=== PATIENT | female | born 1940 | race Caucasian/White ===

== ENCOUNTER 2017-07-16 15:33 | Inpatient (IN) ==
[2017-07-16 16:36] LABS: Hematocrit 41.2 % (35.3-44.9); Hemoglobin 13.8 g/dL (11.5-15.4); Mean Corpuscular HGB Conc 33.5 g/dL (31.6-35.5); Mean Corpuscular Hemoglobin 29.5 pg (28.0-33.3); Mean Platelet Volume 10.1 fL (9.4-12.4); Platelet Count 114 K/mcL (140-400); Red Blood Count 4.68 M/mcL (3.82-4.97); Red Cell Distribution Width 13.2 % (11.5-14.5)
[2017-07-16] MEDS ORDERED: 0.9 % Sodium Chloride 1,000 ML IVC ONE (16:40)
[2017-07-16] MEDS ORDERED: Ipratropium/Albuterol Neb 3 ML IH ONE (16:40)
[2017-07-16] MEDS ORDERED: methylPREDNISolone 125 MG/2 ML VIAL IVP ONE (16:40)
--- NOTE | 2017-07-16 16:51 | Emergency Department Note ---
Disposition Clinical Impression: Hypoxia, COPD exacerbation COPD (chronic obstructive pulmonary disease) Qualifiers: COPD type: unspecified COPD Qualified Code(s): J44.9 - Chronic obstructive pulmonary disease, unspecified Chest pain Qualifiers: Chest pain type: unspecified Qualified Code(s): R07.9 - Chest pain, unspecified Disposition: Admitted As Inpatient Condition: Fair Referrals: Irina Miller CNP [Primary Care Provider] - Forms: ED Satisfaction Letter Time of Disposition: 17:53 SOB HPI - General Chief Complaint: ED Shortness of Breath/Dyspnea Stated Complaint: Possible PE,Dr Irina Miller. CP/SOB Time Seen by Provider: 07/16/17 16:16 Source: patient Mode of arrival: wheelchair Limitations: no limitations Nursing Notes Reviewed: Yes Vital Signs Reviewed: Yes - History of Present Illness 77-year-old female with history of COPD presents for evaluation of dyspnea. Patient did have a recent hospitalization at [facility] where she had a volvulus. Patient states that her current symptoms occurring over the past 3 days. Patient's had shortness of breath as well as a productive green cough during this time. Patient noted increasing chest pain on the left side today. Patient states it hurts when she takes a deep breath. Notes that 2 of her today. Patient denies any fevers. Denies any nausea vomiting or diaphoresis. Patient states that she does not use home oxygen was sent in by her primary care doctor when she was hypoxic on room air 87%. - Related Data Home Medications Medication Instructions Recorded Confirmed Enalapril Maleate [Vasotec] 20 mg PO BID 07/16/17 07/16/17 Allergies Allergy/AdvReac Type Severity Reaction Status Date / Time sulfamethoxazole AdvReac Vomiting Verified 07/16/17 15:36 [From Bactrim] trimethoprim [From Bactrim] AdvReac Vomiting Verified 07/16/17 15:36 All systems ED: reviewed and negative except as stated. Constitutional: Denies: fever Cardiovascular: Denies: chest pain Respiratory: Denies: cough, dyspnea Gastrointestinal: Denies: abdominal pain, nausea, vomiting Past Medical History - Past Medical History Source: patient Medical history: Reports: diabetes, hypertension Psychiatric history: Reports: no psych history - Social History Smoking Status: Former smoker Smokeless Tobacco Status: No Alcohol use: Reports: none Drug use: Reports: none Physical Exam - General Limitations: no limitations General appearance: alert - Head Head exam: atraumatic, normocephalic, normal inspection - Eye Eye exam: Present: normal appearance, PERRL, EOMI - ENT ENT exam: normal exam - Neck Neck exam: Present: normal inspection - Chest Chest inspection: Present: normal inspection, symmetric chest wall rise - Respiratory Respiratory exam: Present: prolonged expiratory phase, other (Decreased with poor respiratory effort throughout. Faint wheeze) - Cardiovascular Cardiovascular exam: Present: regular rate, normal rhythm. Absent: systolic murmur - Abdominal Exam Abdominal exam: Present: soft, Non-Tender - Extremities Exam Extremities exam: Present: normal inspection. Absent: pedal edema - Expanded Lower Extremity Exam Neurovascular/Tendon exam: Present: normal capillary refill. Absent: pulse deficit, motor deficit, sensory deficit - Back Exam Back exam: Present: normal inspection - Neurological Exam Neurological exam: Present: alert, oriented X3, CN II-XII intact - Skin Skin exam: Present: warm, dry, intact, normal color Course Course Narrative: Patient will get breathing treatments, labs, concerns for PE. - Reevaluation(s) Reevaluation #1: Patient seen and examined. Patient states that her chest wall hurts. Patient will be given pain medication. Patient's lungs reveal slightly better aeration. Continues to be diminished. Awaiting CT angios of the chest. Time: 17:30 Vital Signs Temperature 98.4 F 07/16/17 15:36 Pulse Rate 104 07/16/17 15:36 Respiratory Rate 24 07/16/17 15:36 Blood Pressure 141/87 07/16/17 15:36 O2 Sat by Pulse Oximetry 94 07/16/17 15:36 Temperature 98.4 F 07/16/17 15:36 Pulse Rate 99 07/16/17 16:31 Respiratory Rate 18 07/16/17 16:52 Blood Pressure 147/87 07/16/17 16:31 O2 Sat by Pulse Oximetry 96 07/16/17 16:52 Oxygen Delivery Oxygen Delivery Nasal Cannula Shortness of Breath/Dyspnea - [facility] Narrative Medical decision making narrative: Patient presents with concerns of chest pain and shortness of breath. Patient has a history of COPD not requiring oxygen at home. She was seen in after being found hypoxic with dyspnea as well as a pleuritic chest pain on the left side. Given the timing of the patient's symptoms and negative troponin makes ACS less likely. Patient had an interpretably nonischemic EKG. Patient had a CTA of the chest which did not show any central pulmonary embolism. Patient likely had bilateral lower edema versus atelectasis versus pneumonia. However given the patient's symptoms as well as productive cough the patient will be started on antibiotics. Patient was treated with aerosols as well as steroids. Patient's symptoms are less likely ACS. Patient will be admitted to the hospital service for further evaluation monitoring with supportive care. - Lab Data Lab results reviewed: Yes I reviewed the patient's lab results. Result diagrams: 07/16/17 16:11 07/16/17 16:11 Lab Results 07/16/17 07/16/17 07/16/17 Range/Units 16:11 16:11 16:11 WBC 9.2 (4.3-11.1) K/mcL RBC 4.68 (3.82-4.97) M/mcL Hgb 13.8 (11.5-15.4) g/dL Hct 41.2 (35.3-44.9) % MCV 88.0 (83.0-100.0) fL MCH 29.5 (28.0-33.3) pg MCHC 33.5 (31.6-35.5) g/dL RDW 13.2 (11.5-14.5) % Plt Count 114 L (140-400) K/mcL MPV 10.1 (9.4-12.4) fL Immature Gran % Test Not Performed Seg Neutrophils % 72.0 % Band Neutrophils % 8.0 H (0-4) % Lymphocytes % 10.0 % Monocytes % 6.0 % Eosinophils % Test Not Performed Basophils % Test Not Performed Metamyelocytes % 4.0 H (0) % Neutrophils # 7.4 (1.6-8.9) K/mcL Lymphocytes # 0.9 (0.6-4.6) K/mcL Monocytes # 0.6 (0.0-1.3) K/mcL Eosinophils # Test Not Performed Basophils # Test Not Performed Reactive Lymphocytes Present A (Not Present) Platelet Estimate Decreased L (Normal) D-Dimer 895 H (0-500) ng/mLFEU Sodium 137 (136-145) mEq/L Potassium 3.6 (3.5-5.1) mEq/L Chloride 103 (98-107) mEq/L Carbon Dioxide 27 (23-29) mEq/L BUN 10 (8-23) mg/dL Creatinine 0.59 L (0.60-1.20) mg/dL Est GFR ( Amer) > 60 (> 60) Est GFR (Non-Af Amer) > 60 (> 60) BUN/Creatinine Ratio 17 (6-26) Glucose 146 H (70-105) mg/dL Calculated Osmolality 286 (280-300) Calcium 9.2 (8.6-10.3) mg/dL Total Bilirubin 0.8 (0.3-1.0) mg/dL AST 16 (13-39) Units/L ALT 19 (7-52) Units/L Alkaline Phosphatase 52 (34-104) Units/L Troponin I < 0.03 (< 0.04) ng/mL B-Natriuretic Peptide (Less than 100) pg/mL Serum Total Protein 7.3 (6.4-8.9) g/dL Albumin 4.1 (3.5-5.7) g/dL Globulin 3.2 (2.4-3.5) g/dL Albumin/Globulin Ratio 1.3 (1.1-2.2) 07/16/17 Range/Units 16:11 WBC (4.3-11.1) K/mcL RBC (3.82-4.97) M/mcL Hgb (11.5-15.4) g/dL Hct (35.3-44.9) % MCV (83.0-100.0) fL MCH (28.0-33.3) pg MCHC (31.6-35.5) g/dL RDW (11.5-14.5) % Plt Count (140-400) K/mcL MPV (9.4-12.4) fL Immature Gran % Seg Neutrophils % % Band Neutrophils % (0-4) % Lymphocytes % % Monocytes % % Eosinophils % Basophils % Metamyelocytes % (0) % Neutrophils # (1.6-8.9) K/mcL Lymphocytes # (0.6-4.6) K/mcL Monocytes # (0.0-1.3) K/mcL Eosinophils # Basophils # Reactive Lymphocytes (Not Present) Platelet Estimate (Normal) D-Dimer (0-500) ng/mLFEU Sodium (136-145) mEq/L Potassium (3.5-5.1) mEq/L Chloride (98-107) mEq/L Carbon Dioxide (23-29) mEq/L BUN (8-23) mg/dL Creatinine (0.60-1.20) mg/dL Est GFR ( Amer) (> 60) Est GFR (Non-Af Amer) (> 60) BUN/Creatinine Ratio (6-26) Glucose (70-105) mg/dL Calculated Osmolality (280-300) Calcium (8.6-10.3) mg/dL Total Bilirubin (0.3-1.0) mg/dL AST (13-39) Units/L ALT (7-52) Units/L Alkaline Phosphatase (34-104) Units/L Troponin I (< 0.04) ng/mL B-Natriuretic Peptide 29 (Less than 100) pg/mL Serum Total Protein (6.4-8.9) g/dL Albumin (3.5-5.7) g/dL Globulin (2.4-3.5) g/dL Albumin/Globulin Ratio (1.1-2.2) - Radiology Data Radiology results reviewed: Yes I reviewed the patient's radiology results. Chest X-Ray 07/16/17 15:41 IMPRESSION: Patchy bilateral lower lung airspace disease, greater on the left, likely atelectasis. Pneumonia and edema remain less likely considerations. D/ / Moshe Andrea MD / Moshe Andrea MD Interpreting Provider: Moshe Andrea MD Chest X-Ray 07/16/17 15:41 IMPRESSION: Patchy bilateral lower lung airspace disease, greater on the left, likely atelectasis. Pneumonia and edema remain less likely considerations. D/ / Moshe Andrea MD / Moshe Andrea MD Interpreting Provider: Moshe Andrea MD Chest CTA 07/16/17 17:00 IMPRESSION: 1. Limited evaluation of the segmental and subsegmental pulmonary arterial branches. No central pulmonary embolism is detected. 2. Patchy collapse and consolidation within the lower lobes bilaterally. Although some of this likely represents atelectasis, a component of edema or pneumonia would be considered as well. 3. Borderline enlarged lymph nodes within the mediastinum, probably reactive. 4. Severe emphysema. D/ / Moshe Andrea MD / Moshe Andrea MD Interpreting Provider: Moshe Andrea MD - EKG Data EKG attestation: Yes I reviewed and interpreted this EKG. EKG shows normal: Reports: sinus rhythm [place]/QRS: Reports: normal, RBBB T wave inversions noted in: Reports: II, III, aVF, v1, v2, v3, v4, v5, v6 Interpretation: Reports: no acute changes, nonspecific ST-T wave changes S.Kim - Evangelina Situation: Demographics Background: Presenting Complaint Assessment: Vital Signs, Course and respsone to treatment Recommendation: Barrier(s) to disposition, Recommendation based on pending studies, treatments, or consults S.B.AThea Report Given to: Dr. Khai Hutchinson Repor Time: 17:58
[2017-07-16 16:57] LABS: Alanine Aminotransferase 19 Units/L (7-52); Albumin 4.1 g/dL (3.5-5.7); Albumin/Globulin Ratio 1.3 (1.1-2.2); Alkaline Phosphatase 52 Units/L (34-104); Aspartate Amino Transferase 16 Units/L (13-39); BUN/Creatinine Ratio 17 (6-26); Bilirubin,Total 0.8 mg/dL (0.3-1.0); Blood Urea Nitrogen 10 mg/dL (8-23); Calcium 9.2 mg/dL (8.6-10.3); Carbon Dioxide 27 mEq/L (23-29); Chloride 103 mEq/L (98-107); Globulin 3.2 g/dL (2.4-3.5); Glucose 146 mg/dL (70-105); Osmolality,Calculated 286 (280-300); Potassium 3.6 mEq/L (3.5-5.1); Sodium 137 mEq/L (136-145); Total Protein 7.3 g/dL (6.4-8.9); eGFR For African Americans > 60 (> 60); eGFR For Non-African Americans > 60 (> 60)
--- NOTE | 2017-07-16 16:59 | Emergency Department Note ---
Disposition Clinical Impression: Hypoxia, COPD exacerbation COPD (chronic obstructive pulmonary disease) Qualifiers: COPD type: unspecified COPD Qualified Code(s): J44.9 - Chronic obstructive pulmonary disease, unspecified Chest pain Qualifiers: Chest pain type: unspecified Qualified Code(s): R07.9 - Chest pain, unspecified Disposition: Admitted As Inpatient Condition: Fair Referrals: Irina Miller CNP [Primary Care Provider] - Forms: ED Satisfaction Letter General Adult HPI - General Chief complaint: ED Shortness of Breath/Dyspnea Stated complaint: Possible PE,Dr Irina Miller. CP/SOB Time Seen by Provider: 07/16/17 16:16 Source: patient Mode of arrival: wheelchair Limitations: no limitations - History of Present Illness Pain Scale: 8 - Related Data Home Medications Medication Instructions Recorded Confirmed Enalapril Maleate [Vasotec] 20 mg PO BID 07/16/17 07/16/17 Allergies Allergy/AdvReac Type Severity Reaction Status Date / Time sulfamethoxazole AdvReac Vomiting Verified 07/16/17 15:36 [From Bactrim] trimethoprim [From Bactrim] AdvReac Vomiting Verified 07/16/17 15:36 Constitutional: Denies: fever Cardiovascular: Denies: chest pain Respiratory: Denies: cough, dyspnea Gastrointestinal: Denies: abdominal pain, nausea, vomiting Past Medical History - Past Medical History Medical history: Reports: diabetes, hypertension Psychiatric history: Reports: no psych history - Social History Smoking Status: Former smoker Smokeless Tobacco Status: No Alcohol use: Reports: none Drug use: Reports: none Physical Exam - General Limitations: no limitations General appearance: alert Course Vital Signs Temperature 98.4 F 07/16/17 15:36 Pulse Rate 104 07/16/17 15:36 Respiratory Rate 24 07/16/17 15:36 Blood Pressure 141/87 07/16/17 15:36 O2 Sat by Pulse Oximetry 94 07/16/17 15:36 Temperature 98.4 F 07/16/17 15:36 Pulse Rate 99 07/16/17 16:31 Respiratory Rate 18 07/16/17 16:52 Blood Pressure 147/87 07/16/17 16:31 O2 Sat by Pulse Oximetry 96 07/16/17 16:52 Oxygen Delivery Oxygen Delivery Nasal Cannula Medical Decision Making - Lab Data Result diagrams: 07/16/17 16:11 07/16/17 16:11 Lab Results 07/16/17 07/16/17 07/16/17 Range/Units 16:11 16:11 16:11 WBC 9.2 (4.3-11.1) K/mcL RBC 4.68 (3.82-4.97) M/mcL Hgb 13.8 (11.5-15.4) g/dL Hct 41.2 (35.3-44.9) % MCV 88.0 (83.0-100.0) fL MCH 29.5 (28.0-33.3) pg MCHC 33.5 (31.6-35.5) g/dL RDW 13.2 (11.5-14.5) % Plt Count 114 L (140-400) K/mcL MPV 10.1 (9.4-12.4) fL Immature Gran % Test Not Performed Seg Neutrophils % 72.0 % Band Neutrophils % 8.0 H (0-4) % Lymphocytes % 10.0 % Monocytes % 6.0 % Eosinophils % Test Not Performed Basophils % Test Not Performed Metamyelocytes % 4.0 H (0) % Neutrophils # 7.4 (1.6-8.9) K/mcL Lymphocytes # 0.9 (0.6-4.6) K/mcL Monocytes # 0.6 (0.0-1.3) K/mcL Eosinophils # Test Not Performed Basophils # Test Not Performed Reactive Lymphocytes Present A (Not Present) Platelet Estimate Decreased L (Normal) D-Dimer 895 H (0-500) ng/mLFEU Sodium 137 (136-145) mEq/L Potassium 3.6 (3.5-5.1) mEq/L Chloride 103 (98-107) mEq/L Carbon Dioxide 27 (23-29) mEq/L BUN 10 (8-23) mg/dL Creatinine 0.59 L (0.60-1.20) mg/dL Est GFR ( Amer) > 60 (> 60) Est GFR (Non-Af Amer) > 60 (> 60) BUN/Creatinine Ratio 17 (6-26) Glucose 146 H (70-105) mg/dL Calculated Osmolality 286 (280-300) Calcium 9.2 (8.6-10.3) mg/dL Total Bilirubin 0.8 (0.3-1.0) mg/dL AST 16 (13-39) Units/L ALT 19 (7-52) Units/L Alkaline Phosphatase 52 (34-104) Units/L Troponin I < 0.03 (< 0.04) ng/mL B-Natriuretic Peptide (Less than 100) pg/mL Serum Total Protein 7.3 (6.4-8.9) g/dL Albumin 4.1 (3.5-5.7) g/dL Globulin 3.2 (2.4-3.5) g/dL Albumin/Globulin Ratio 1.3 (1.1-2.2) 07/16/17 Range/Units 16:11 WBC (4.3-11.1) K/mcL RBC (3.82-4.97) M/mcL Hgb (11.5-15.4) g/dL Hct (35.3-44.9) % MCV (83.0-100.0) fL MCH (28.0-33.3) pg MCHC (31.6-35.5) g/dL RDW (11.5-14.5) % Plt Count (140-400) K/mcL MPV (9.4-12.4) fL Immature Gran % Seg Neutrophils % % Band Neutrophils % (0-4) % Lymphocytes % % Monocytes % % Eosinophils % Basophils % Metamyelocytes % (0) % Neutrophils # (1.6-8.9) K/mcL Lymphocytes # (0.6-4.6) K/mcL Monocytes # (0.0-1.3) K/mcL Eosinophils # Basophils # Reactive Lymphocytes (Not Present) Platelet Estimate (Normal) D-Dimer (0-500) ng/mLFEU Sodium (136-145) mEq/L Potassium (3.5-5.1) mEq/L Chloride (98-107) mEq/L Carbon Dioxide (23-29) mEq/L BUN (8-23) mg/dL Creatinine (0.60-1.20) mg/dL Est GFR ( Amer) (> 60) Est GFR (Non-Af Amer) (> 60) BUN/Creatinine Ratio (6-26) Glucose (70-105) mg/dL Calculated Osmolality (280-300) Calcium (8.6-10.3) mg/dL Total Bilirubin (0.3-1.0) mg/dL AST (13-39) Units/L ALT (7-52) Units/L Alkaline Phosphatase (34-104) Units/L Troponin I (< 0.04) ng/mL B-Natriuretic Peptide 29 (Less than 100) pg/mL Serum Total Protein (6.4-8.9) g/dL Albumin (3.5-5.7) g/dL Globulin (2.4-3.5) g/dL Albumin/Globulin Ratio (1.1-2.2) Critical Care Time Critical Care Time: Yes Total Critical Care Time: 35 Attestation: Critical care performed: Time is exclusive of separately billable procedures. Time includes: direct patient care, patient reassessment, coordination of patient care, interpretation of data (laboratory data, radiology data, and respiratory data), review of patient's medical records, medical consultation and documentation of patient care. Procedures included in critical care time: Procedures excluded from critical care time: Attestation Statement - Attestation Attestation: I examined this patient and my medical decision-making was reviewed with the Resident Physician. I agree with the documented findings, disposition and treatment plan as described except to the extent set forth below. Patient to the ED with shortness of breath. Cough. States she cannot cough up the phlegm. Pain in the left side of her chest that is constant. Saw her PCP states who recommended her to come to the ED to make sure she does not have a blood clot in her lung. No fever. Patient in no distress on examination. Lungs with end expiratory wheezing. Plan. Cardiac workup with CT chest. Patient will need sepsis criteria with a percent bandemia and a tachycardia. IV antibodies were ordered. We will check lactate. Admitted to hospitalist.
[2017-07-16] MEDS ORDERED: Isovue-370 500 ML INFUS..BTL IV ONE (17:00)
[2017-07-16 17:05] LABS: Troponin I < 0.03 ng/mL (< 0.04)
[2017-07-16 17:14] LABS: Lymphocytes # 0.9 K/mcL (0.6-4.6); Monocytes # 0.6 K/mcL (0.0-1.3); Neutrophils # 7.4 K/mcL (1.6-8.9); Reactive Lymphocytes Present (Not Present)
[2017-07-16 17:15] LABS: Platelet Estimate Decreased (Normal)
[2017-07-16] MEDS ORDERED: *HR* FentaNYL (PF) 100 MCG/2 ML VIAL IVP ONE (17:30)
[2017-07-16] MEDS ORDERED: Levofloxacin 750 MG/150 ML 750 MG/150 ML BAG IVPB ONE (17:51)
--- NOTE | 2017-07-16 19:04 | Internal Med History&Physical ---
Date of Encounter: 07/16/17 Time of Encounter: 18:54 Internal Medicine - H&P: HPI Chief complaint: SOB History of present illness: Ms. Silverman is a 77 year old female history of COPD quit smoking 37 years ago, previously smoked for 30 years, hypertension who presents with PNA and acute bronchitis - COPD flare. Patient complaining of three-day history of worsening dyspnea, productive of green sputum associated with cough. Dyspnea was on exertion, improved with rest. Developed pleuritic chest pain localized to the left today. Denies fever , nausea, vomiting, abdominal pain. Because of these symptoms she presented to his her primary care office where she was found to be hypoxic in 87% on room air leading to ED visit for evaluation and optimization. EKG personally reviewed with rate of 100, sinus tachycardia, right bundle branch block - no prior to compare against CT/CT angio chest IMPRESSION: 1. Limited evaluation of the segmental and subsegmental pulmonary arterial branches. No central pulmonary embolism is detected. 2. Patchy collapse and consolidation within the lower lobes bilaterally. Although some of this likely represents atelectasis, a component of edema or pneumonia would be considered as well. 3. Borderline enlarged lymph nodes within the mediastinum, probably reactive. 4. Severe emphysema. Past Med Surg Social Fam HX - Past Medical History Medical history: diabetes, hypertension Psychiatric history: no psych history - Past Surgical History Surgical History: no surgical history, non-contributory - Social History Smoking Status: Former smoker Smokeless Tobacco Status: No Alcohol use: none Drug use: none - Family History Mother Living Status: Age at : 68 Cause of : Cancer Hx Family Cancer: Yes Father Living Status: Age at : 50 Cause of : TB Hx Family Respiratory Disorders: Yes (TB) Internal Medicine - H&P: Meds Enalapril Maleate [Vasotec] 20 mg PO BID 07/16/17 [History] 3 Allergy/AdvReac Type Severity Reaction Status Date / Time sulfamethoxazole AdvReac Vomiting Verified 07/16/17 15:36 [From Bactrim] trimethoprim [From Bactrim] AdvReac Vomiting Verified 07/16/17 15:36 All Systems PM: A 10-system review of systems was performed and is negative for pertinent findings except as documented above in the HPI. Review of systems: ROS 14 point review of systems reviewed as best as possible given presentation. Pertinent positive or negative as per HPI or otherwise reviewed as negative - Constitutional Vitals: Temp Pulse Resp BP Pulse Ox 98.5 F 114 16 128/74 90 07/16/17 18:52 07/16/17 18:52 07/16/17 18:52 07/16/17 18:52 07/16/17 18:52 Exam: General - AAO x 3 Psych - Appropriate affect/speech. No agitation Eyes - MAICO. Eye lids intact. No scleral icterus Neuro - No gross peripheral or central neuro deficits on inspection Heart - Sinus tachycardia. RRR. S1 and S2 present. No added HS/murmurs appreciated. No elevated JVD appreciated. Lung - decreased air entry b/l, scant wheeze , bibasal crackles appreciated GI - Soft, non-tender. No hepatosplenomegaly/ascites. BS+ - No CVA/suprapubic tenderness or palpable bladder distension Skin - Intact. No rash/petechiae/ecchymosis. Warm extremities Internal Med - H&P Results - Labs CBC & Chem 7: 07/16/17 16:11 07/16/17 16:11 - Assessment and plan (1) PNA (pneumonia) Current Visit: Yes Status: Acute Assessment and plan: Send serologies, sent RVP IV Levaquin Pulse ox, telemetry incentive spirometer Qualifiers: Pneumonia type: due to unspecified organism Lung location: lower lobe of lung Qualified Code(s): J18.1 - Lobar pneumonia, unspecified organism (2) COPD exacerbation Current Visit: Yes Status: Acute Assessment and plan: IV steroids, IV Levaquin, nebulizer treatment (3) Chest pain Current Visit: Yes Status: Acute Assessment and plan: Pleuritic in quality suggestive of pneumonia and COPD. EKG with bundle branch block without prior to compare to. Initial troponin negative, trend. Close monitoring Qualifiers: Chest pain type: unspecified Qualified Code(s): R07.9 - Chest pain, unspecified (4) Hypoxia Current Visit: Yes Status: Acute Assessment and plan: Related to COPD, pneumonia. We will treat above (5) HTN (hypertension) Current Visit: Yes Status: Acute Assessment and plan: Hold blood pressure medicine given blood pressure stable Qualifiers: Hypertension type: essential hypertension Qualified Code(s): I10 - Essential (primary) hypertension - Time Spent With Patient Total time spent is greater than 50% in coordination of care (as documented) at patient's floor/unit and/or counseling patient:
[2017-07-16] MEDS ORDERED: Naloxone 0.4 MG/ML INJ IVP PRN (19:16)
[2017-07-16] MEDS ORDERED: Ipratropium/Albuterol Neb 3 ML IH PRN (20:00)
[2017-07-16] MEDS: 0.9 % Sodium Chloride 1,000 ML IVC SCH (20:50)
[2017-07-16] MEDS: Ipratropium/Albuterol Neb 3 ML IH SCH (23:17)
[2017-07-16] MEDS: MethylPREDNISolone 40 MG/ML VIAL IVP SCH (23:35)
[2017-07-17] MEDS: Melatonin 3 MG TABLET PO PRN ×2 (00:48→20:57)
[2017-07-17] MEDS: Ipratropium/Albuterol Neb 3 ML IH SCH ×4 (04:48→23:26)
[2017-07-17] MEDS: *HR* Enoxaparin 40 MG/0.4 ML SYRINGE SQ SCH (05:37)
[2017-07-17] MEDS: Acetaminophen 325 MG TABLET PO PRN (05:38)
[2017-07-17] MEDS: MethylPREDNISolone 40 MG/ML VIAL IVP SCH (05:38)
[2017-07-17 06:20] LABS: Basophils % 0.3 %; Hematocrit 38.2 % (35.3-44.9); Hemoglobin 12.9 g/dL (11.5-15.4); Immature Granulocytes % 0.8 % (0-4); Lymphocytes # 0.5 K/mcL (0.6-4.6); Lymphocytes % 12.7 %; Mean Corpuscular HGB Conc 33.8 g/dL (31.6-35.5); Mean Corpuscular Hemoglobin 30.1 pg (28.0-33.3); Mean Corpuscular Volume 89.3 fL (83.0-100.0); Mean Platelet Volume 9.8 fL (9.4-12.4); Monocytes # 0.1 K/mcL (0.0-1.3); Monocytes % 1.8 %; Neutrophils # 3.3 K/mcL (1.6-8.9); Platelet Count 119 K/mcL (140-400); Red Blood Count 4.28 M/mcL (3.82-4.97); Red Cell Distribution Width 13.2 % (11.5-14.5); Segmented Neutrophils % 84.4 %
[2017-07-17 06:42] LABS: BUN/Creatinine Ratio 22 (6-26); Blood Urea Nitrogen 11 mg/dL (8-23); Calcium 8.9 mg/dL (8.6-10.3); Carbon Dioxide 22 mEq/L (23-29); Chloride 108 mEq/L (98-107); Glucose 305 mg/dL (70-105); Osmolality,Calculated 299 (280-300); Potassium 3.7 mEq/L (3.5-5.1); Sodium 139 mEq/L (136-145); eGFR For African Americans > 60 (> 60); eGFR For Non-African Americans > 60 (> 60)
[2017-07-17 06:53] LABS: Large Platelets Present (Not Present); Platelet Estimate Decreased (Normal); Reactive Lymphocytes Present (Not Present); Toxic Granulation Present (Not Present)
[2017-07-17] MEDS: 0.9 % Sodium Chloride 1,000 ML IVC SCH (08:25)
--- NOTE | 2017-07-17 08:45 | Internal Med Progress Note ---
Date of Encounter: 07/17/17 Time of Encounter: 08:42 - Assessment and plan (1) Hypoxia Current Visit: Yes Status: Acute Assessment and plan: Acute hypoxic respiratory failure secondary to acute COPD exacerbation due to sepsis from community-acquired pneumonia/unknown agents White blood cell count is 3.9, the patient's bands were 8% on the day of admission, heart rate was 114 Continue Levaquin day #2, decrease dose of Solu-Medrol, continue oxygen therapy CT scan of the chest showed bilateral basilar opacities, no pulmonary emboli. Will require pulmonary function tests within the next 4-6 weeks with proper pulmonary follow-up. (2) COPD exacerbation Current Visit: Yes Status: Acute Assessment and plan: IV steroids, IV Levaquin, nebulizer treatment (3) Chest pain Current Visit: Yes Status: Acute Assessment and plan: Pleuritic in quality suggestive of pneumonia and COPD. EKG with bundle branch block without prior to compare to. Initial troponin negative, trend. Close monitoring Qualifiers: Chest pain type: unspecified Qualified Code(s): R07.9 - Chest pain, unspecified (4) HTN (hypertension) Current Visit: Yes Status: Acute Assessment and plan: Resume enalapril Qualifiers: Hypertension type: essential hypertension Qualified Code(s): I10 - Essential (primary) hypertension (5) PNA (pneumonia) Current Visit: Yes Status: Acute Assessment and plan: Send serologies, sent RVP IV Levaquin Pulse ox, telemetry incentive spirometer Qualifiers: Pneumonia type: due to unspecified organism Lung location: lower lobe of lung Qualified Code(s): J18.1 - Lobar pneumonia, unspecified organism - Time Spent With Patient Total time spent is greater than 50% in coordination of care (as documented) at patient's floor/unit and/or counseling patient: - Subjective Interval history: Still feeling short of breath, denies any chest pain, no abdominal pain or dysuria. No diarrhea. No fevers - Constitutional Vitals: Temp Pulse Resp BP Pulse Ox 98.1 F 89 16 138/76 91 07/17/17 06:50 07/17/17 06:50 07/17/17 06:50 07/17/17 06:50 07/17/17 06:50 General appearance: Present: A&O X 3 - Head Head exam: Present: atraumatic, normocephalic - Eye Eye exam: Present: PERRL, conjuntiva pink, sclera anicteric Pupils: Present: PERRL - Neck Neck exam general surgery: Present: supple, trachea midline. Absent: lymphadenopathy - Respiratory Respiratory exam: Present: decreased breath sounds (Diminished breath sounds bilaterally with minimal diffuse wheezing), CTAB, wheezes. Absent: accessory muscle use, rales, rhonchi - Cardiovascular Cardiovascular exam: Present: RRR, +S1, +S2. Absent: diastolic murmur, gallop, rubs, systolic murmur - GI/Abdominal GI/Abdominal exam: Present: normal bowel sounds, soft, no peritoneal signs. Absent: distended, tenderness - Extremities Exam Extremities exam: Present: warm, radial pulses palpable and symmetrical. Absent : calf tenderness, cyanotic, pedal edema - Neurological Exam Neurological exam: Present: CN II-XII intact, oriented X3, no focal deficits. Absent: pronater drift, facial droop, speech deficit - Skin Skin exam: Present: dry, intact Internal Medicine: Result - Labs CBC & Chem 7: 07/17/17 06:04 07/17/17 06:04 Labs: Short CBC 07/17/17 Range/Units 06:04 WBC 3.9 L D (4.3-11.1) K/mcL Hgb 12.9 (11.5-15.4) g/dL Hct 38.2 (35.3-44.9) % Plt Count 119 L (140-400) K/mcL Neutrophils # 3.3 (1.6-8.9) K/mcL BMP 07/17/17 06:04 Sodium 139 Potassium 3.7 Chloride 108 H Carbon Dioxide 22 L BUN 11 Creatinine 0.50 L Glucose 305 H Calcium 8.9 Cardiac Enzymes 07/17/17 07/17/17 Range/Units 00:14 06:04 Troponin I < 0.03 < 0.03 (< 0.04) ng/mL - ABG Interpretation ABG results: PT/INR, D-dimer D-Dimer 895 ng/mLFEU (0-500) H 07/16/17 16:11 Consult Discharge Plan - Plan Referrals: Irina Miller, DAIRY TECHNOLOGIST [Primary Care Provider] -
[2017-07-17 08:48] LABS: Adenovirus Not Detected (Not Detect); Bordetella Pertussis Not Detected (Not Detect); Chlamydophila pneumoniae Not Detected (Not Detect); Coronavirus 229E Not Detected (Not Detect); Coronavirus HKU1 Not Detected (Not Detect); Coronavirus NL63 Not Detected (Not Detect); Coronavirus OC43 Not Detected (Not Detect); Human Metapneumovirus Not Detected (Not Detect); Human Rhinovirus/Enterovirus Not Detected (Not Detect); Influenza A Subtype 2009 H1 Not Detected (Not Detect); Influenza A Untypeable Not Detected (Not Detect); Influenza B Not Detected (Not Detect); Mycoplasma pneumoniae Not Detected (Not Detect); Parainfluenza Virus 1 Not Detected (Not Detect); Parainfluenza Virus 2 Not Detected (Not Detect); Parainfluenza Virus 3 Not Detected (Not Detect); Parainfluenza Virus 4 Not Detected (Not Detect); Respiratory Syncytial Virus Not Detected (Not Detect)
[2017-07-17] MEDS ORDERED: Levofloxacin 750 MG/150 ML 750 MG/150 ML BAG IVPB SCH (09:00)
[2017-07-17] MEDS: Lisinopril 20 MG TABLET PO SCH ×2 (09:28→20:52)
--- NOTE | 2017-07-17 12:26 | Electrocardiograph Report ---
[place] [id number] Test Date: 2017-07-16 Pat Name: Ranjana Silverman Department: [id number] Room: 3B Gender: F Commercial Litigation Associate: KARELY : 1940 Requested By: Octavia See Order Number: [id number] Reading MD: Jonas Palafox Measurements Intervals Girdler Rate: 100 P: 33 ID: [id number] QRS: 22 QRSD: 151 T: -7 QT: 398 QTc: 455 Interpretive Statements SINUS TACHYCARDIA RIGHT BUNDLE BRANCH BLOCK Electronically Signed On 07-17-2017 12:24:59 EDT by Jonas Palafox
[2017-07-17] MEDS ORDERED: MethylPREDNISolone 40 MG/ML VIAL IVP SCH (21:00)
[2017-07-18] MEDS: Acetaminophen 325 MG TABLET PO PRN (04:06)
[2017-07-18] MEDS: *HR* Enoxaparin 40 MG/0.4 ML SYRINGE SQ SCH (04:06)
[2017-07-18] MEDS: Ipratropium/Albuterol Neb 3 ML IH SCH (04:22)
[2017-07-18 06:43] VITALS: BP 143/80
[2017-07-18 06:47] LABS: Hematocrit 34.6 % (35.3-44.9); Hemoglobin 11.8 g/dL (11.5-15.4); Mean Corpuscular HGB Conc 34.1 g/dL (31.6-35.5); Mean Platelet Volume 9.9 fL (9.4-12.4); Platelet Count 125 K/mcL (140-400); Red Blood Count 3.93 M/mcL (3.82-4.97); Red Cell Distribution Width 13.4 % (11.5-14.5)
[2017-07-18 07:12] LABS: BUN/Creatinine Ratio 33 (6-26); Blood Urea Nitrogen 17 mg/dL (8-23); Calcium 8.8 mg/dL (8.6-10.3); Carbon Dioxide 23 mEq/L (23-29); Chloride 108 mEq/L (98-107); Glucose 317 mg/dL (70-105); Osmolality,Calculated 300 (280-300); Sodium 138 mEq/L (136-145); eGFR For African Americans > 60 (> 60); eGFR For Non-African Americans > 60 (> 60)
--- NOTE | 2017-07-18 08:12 | Discharge Summary ---
- NOTES TO OUTPATIENT PROVIDER Notes to Outpatient Provider: Follow-up with primary care physician within the next 7 days. Complete 4 more days of Levaquin starting 07/19/2017. Prednisone taper: 40 mg daily for 3 days, 30 mg for 3 days, 20 mg for 3 days, 10 mg for 3 days. Needs pulmonary function tests within the next 4-6 weeks. Orders not resulted at time of discharge: Pending orders 07/16/17 20:04 Mycoplasma pneumoniae IgG IgM Routine 07/19/17 04:00 Lactic Acid AM 0400 Date of Encounter: 07/18/17 Time of Encounter: 08:08 - Discharge Diagnosis (1) Hypoxia Priority: Primary Status: Acute Assessment and Plan: Acute hypoxic respiratory failure secondary to acute COPD exacerbation due to sepsis from community-acquired pneumonia/unknown agents White blood cell count is 3.9, the patient's bands were 8% on the day of admission, heart rate was 114 (2) COPD exacerbation Priority: Primary Status: Acute (3) Chest pain Priority: Secondary Status: Acute Assessment and Plan: Pleuritic in quality suggestive of pneumonia and COPD. EKG with bundle branch block without prior to compare to. Troponins were negative Qualifiers: Chest pain type: unspecified Qualified Code(s): R07.9 - Chest pain, unspecified (4) HTN (hypertension) Priority: Secondary Status: Acute Qualifiers: Hypertension type: essential hypertension Qualified Code(s): I10 - Essential (primary) hypertension (5) PNA (pneumonia) Priority: Primary Status: Acute Qualifiers: Pneumonia type: due to unspecified organism Lung location: lower lobe of lung Qualified Code(s): J18.1 - Lobar pneumonia, unspecified organism Hospital course: Ms. Silverman is a 77 year old female with history of COPD quit smoking 37 years ago, remote tobacco use (previously smoked for 30 years was (, hypertension who presented with a three-day history of worsening dyspnea, productive green sputum associated with cough. Dyspnea was on exertion, improved with rest. Developed pleuritic chest pain localized to the left. Denies fever, nausea, vomiting, abdominal pain. Because of these symptoms she presented to his her primary care office where she was found to be hypoxic in 87% on room air leading to ED visit for evaluation and optimization. EKG personally reviewed with rate of 100, sinus tachycardia, right bundle branch block - no prior to compare against CT scan of the chest showed bilateral basilar opacities, no pulmonary emboli. 1. Limited evaluation of the segmental and subsegmental pulmonary arterial branches. No central pulmonary embolism is detected. 2. Patchy collapse and consolidation within the lower lobes bilaterally. Although some of this likely represents atelectasis, a component of edema or pneumonia would be considered as well. 3. Borderline enlarged lymph nodes within the mediastinum, probably reactive. 4. Severe emphysema. Was started on IV Solu-Medrol and Levaquin. Continue Levaquin for 5 more days. The patient improved, qualified for oxygen the day prior her discharge but today , she walked for 6 minutes without dropping her oxygen. Improved sooner than expected and is a stable to be discharged. She was given the option to stay another day but prefers to go home at the moment. Will require pulmonary function tests within the next 4-6 weeks with proper pulmonary follow-up. - Time Spent with Patient Total time spent providing and/or coordinating discharge services: Greater than 30 minutes (40 min) - Discharge Medications Prescriptions: levoFLOXacin [Levaquin] 750 mg PO DAILY #4 tablet predniSONE [PredniSONE] 10 mg PO DAILY 12 Days tablet Home Medications: Enalapril Maleate [Vasotec] 20 mg PO BID 07/16/17 [History] levoFLOXacin [Levaquin] 750 mg PO DAILY #4 tablet 07/18/17 [Rx] predniSONE [PredniSONE] 10 mg PO DAILY 12 Days tablet 07/18/17 [Rx] Allergies/Adverse Reactions: 3 Allergy/AdvReac Type Severity Reaction Status Date / Time sulfamethoxazole AdvReac Vomiting Verified 07/16/17 15:36 [From Bactrim] trimethoprim [From Bactrim] AdvReac Vomiting Verified 07/16/17 15:36 Date of admission: 07/16/17 19:16 Primary care physician: Irina Miller CNP - Constitutional Vitals: Temp Pulse Resp BP Pulse Ox 97.9 F 69 14 143/80 92 07/18/17 06:41 07/18/17 06:41 07/18/17 06:41 07/18/17 06:41 07/18/17 06:41 General appearance: Present: A&O X 3 - Head Head exam: Present: atraumatic, normocephalic - Eye Eye exam: Present: PERRL, conjuntiva pink, sclera anicteric Pupils: Present: PERRL - Neck Neck exam general surgery: Present: supple, trachea midline. Absent: lymphadenopathy - Respiratory Respiratory exam: Present: decreased breath sounds, CTAB. Absent: accessory muscle use, rales, rhonchi, wheezes - Cardiovascular Cardiovascular exam: Present: RRR, +S1, +S2. Absent: diastolic murmur, gallop, rubs, systolic murmur - GI/Abdominal GI/Abdominal exam: Present: normal bowel sounds, soft, no peritoneal signs. Absent: distended, tenderness - Extremities Exam Extremities exam: Present: warm, radial pulses palpable and symmetrical. Absent : calf tenderness, cyanotic, pedal edema - Neurological Exam Neurological exam: Present: CN II-XII intact, oriented X3, no focal deficits. Absent: pronater drift, facial droop, speech deficit - Skin Skin exam: Present: dry, intact - Patient Status Disposition: Home, Self-Care Condition: Good Overall status at discharge: patient is back to baseline - Discharge Instructions Follow Up With: Irina Miller EDUCATION REPORTER [Primary Care Provider] - - Diet and Activity Activity: increase activity as tolerated Diet: low fat, low cholesterol
[2017-07-18] MEDS ORDERED: levoFLOXacin 750 MG TABLET PO SCH (08:15)
[2017-07-18] MEDS: Lisinopril 20 MG TABLET PO SCH (08:28)
[2017-07-19 15:04] LABS: Mycoplasma pneumoniae IgG 1.06 U/L (<=0.09)
== END 2017-07-18 09:03 | disposition home or self-care (01) | DRG 871 ==
LOC: EMEROO 15:33 → 3BNU 15:33
PROVIDERS: ADMIT Internal Medicine Hematology & Oncology; ATTEND Internal Medicine Hematology & Oncology

== ENCOUNTER 2020-10-24 05:14 | Inpatient (IN) ==
[2020-10-24] MEDS ORDERED: Isovue-370 500 ML BOTTLE IVP ONE ×2 (05:31→06:14)
[2020-10-24] MEDS ORDERED: Ondansetron 4 MG/2 ML VIAL IVP ONE (05:32)
[2020-10-24] MEDS ORDERED: 0.9 % Sodium Chloride 1,000 ML IVC ONE (05:32)
[2020-10-24] MEDS: Morphine Sulfate 2 MG/ML SYRINGE IVP ONE ×2 (06:04→06:12)
[2020-10-24 06:07] LABS: Basophils % 0.2 %; Eosinophils # 0.1 K/mcL (0.0-0.6); Eosinophils % 0.8 %; Hematocrit 45.1 % (35.3-44.9); Hemoglobin 14.9 g/dL (11.5-15.4); Immature Granulocytes % 0.3 % (0-4); Lymphocytes # 0.7 K/mcL (0.6-4.6); Lymphocytes % 6.8 %; Mean Corpuscular Hemoglobin 29.2 pg (28.0-33.3); Mean Corpuscular Volume 88.4 fL (83.0-100.0); Mean Platelet Volume 10.4 fL (9.4-12.4); Monocytes # 0.3 K/mcL (0.0-1.3); Monocytes % 2.8 %; Neutrophils # 9.2 K/mcL (1.6-8.9); Platelet Count 112 K/mcL (140-400); Red Cell Distribution Width 12.8 % (11.5-14.5); Segmented Neutrophils % 89.1 %; White Blood Count 10.3 K/mcL (4.3-11.1)
[2020-10-24 06:29] LABS: VBG HCO3 25 mEq/L (21-27); VBG PCO2 45 mmHg (41-51); VBG PH 7.36 pH Units (7.32-7.42); VBG PO2 75 mmHg (25-50)
[2020-10-24 06:29] LABS: Alanine Aminotransferase 15 Units/L (7-52); Albumin/Globulin Ratio 1.5 (1.1-2.2); Alkaline Phosphatase 69 Units/L (34-104); Aspartate Amino Transferase 15 Units/L (13-39); BUN/Creatinine Ratio 29 (6-26); Bilirubin,Direct 0.1 mg/dL (0.0-0.2); Bilirubin,Indirect 0.6 mg/dL (0.0-1.0); Bilirubin,Total 0.7 mg/dL (0.3-1.0); Blood Urea Nitrogen 20 mg/dL (8-23); Carbon Dioxide 24 mEq/L (23-29); Chloride 106 mEq/L (98-107); Globulin 2.7 g/dL (2.4-3.5); Glucose 204 mg/dL (70-105); Lipase 21 Units/L (11-82); Magnesium 1.7 mg/dL (1.6-2.6); Osmolality,Calculated 300 (280-300); Potassium 3.6 mEq/L (3.5-5.1); Sodium 141 mEq/L (136-145); Total Protein 6.7 g/dL (6.4-8.9); Troponin I < 0.03 ng/mL (< 0.04); eGFR For African Americans > 60 (> 60); eGFR For Non-African Americans > 60 (> 60)
[2020-10-24] MEDS ORDERED: Azithromycin 250 MG TABLET PO ONE (06:44)
[2020-10-24] MEDS ORDERED: cefTRIAXone 1,000 MG in Water for inj. (sterile) 10 ML IVP ONE (06:44)
[2020-10-24] MEDS ORDERED: Clindamycin 900 MG/50 ML 900 MG/50 ML IV.SOLN IVPB ONE (06:53)
[2020-10-24 09:00] LABS: Bacteria,Urine Few per hpf (None-Few); Bilirubin,Urine Negative (Negative); Blood,Urine Negative (Negative); Clarity,Urine Clear (Clear); Color,Urine Light-Yellow (Yellow); Glucose,Urine (UA) Normal (Normal); Ketones,Urine Negative (Negative); Leukocyte Esterase,Urine Large (Negative); Mucus,Urine Few per lpf (None-Few); Nitrite,Urine Positive (Negative); PH,Urine 5.5 pH Units (5.0-8.0); Protein,Urine Trace mg/dL (Neg-Trace); Specific Gravity,Urine > 1.030 (1.010-1.025); Squamous Epithelial Cell,Urine Few per hpf (None-Few); Urobilinogen,Urine Normal (Normal); WBC,Urine 30-50 per hpf (0-3)
[2020-10-24] MEDS ORDERED: Acetaminophen 325 MG TABLET PO PRN (09:09)
[2020-10-24] MEDS ORDERED: Naloxone 0.4 MG/ML INJ IVP PRN (09:09)
[2020-10-24] MEDS ORDERED: Benzonatate 100 MG CAPSULE PO PRN (09:12)
[2020-10-25] MEDS: lisinopriL 20 MG TABLET PO SCH ×2 (00:09→07:28)
[2020-10-25 04:24] VITALS: TEMP 98.2
[2020-10-25 05:16] LABS: Basophils % 0.4 %; Eosinophils # 0.2 K/mcL (0.0-0.6); Eosinophils % 2.7 %; Hematocrit 35.7 % (35.3-44.9); Hemoglobin 11.9 g/dL (11.5-15.4); Immature Granulocytes % 0.2 % (0-4); Immature Platelets 3.6 % (1.1-6.1); Lymphocytes # 1.1 K/mcL (0.6-4.6); Lymphocytes % 19.9 %; Mean Corpuscular HGB Conc 33.3 g/dL (31.6-35.5); Mean Corpuscular Hemoglobin 29.6 pg (28.0-33.3); Mean Corpuscular Volume 88.8 fL (83.0-100.0); Mean Platelet Volume 9.6 fL (9.4-12.4); Monocytes # 0.6 K/mcL (0.0-1.3); Monocytes % 10.9 %; Neutrophils # 3.6 K/mcL (1.6-8.9); Red Blood Count 4.02 M/mcL (3.82-4.97); Red Cell Distribution Width 12.9 % (11.5-14.5); Segmented Neutrophils % 65.9 %; White Blood Count 5.5 K/mcL (4.3-11.1)
[2020-10-25 05:22] LABS: Platelet Count 96 K/mcL (140-400)
[2020-10-25 05:36] LABS: BUN/Creatinine Ratio 25 (6-26); Blood Urea Nitrogen 13 mg/dL (8-23); Calcium 8.5 mg/dL (8.6-10.3); Carbon Dioxide 28 mEq/L (23-29); Chloride 107 mEq/L (98-107); Glucose 129 mg/dL (70-105); Magnesium 1.8 mg/dL (1.6-2.6); Osmolality,Calculated 294 (280-300); Phosphorous 3.3 mg/dL (2.7-4.5); Potassium 3.3 mEq/L (3.5-5.1); Sodium 141 mEq/L (136-145); eGFR For African Americans > 60 (> 60); eGFR For Non-African Americans > 60 (> 60)
[2020-10-25 05:39] LABS: Estimated Average Glucose 134 mg/dl; Hemoglobin A1C 6.3 %
[2020-10-25] MEDS ORDERED: *HR* Enoxaparin 40 MG/0.4 ML SYRINGE SQ SCH (06:00)
[2020-10-25 07:25] VITALS: BP 139/76; PULSE 73; O2SAT 94
[2020-10-25] MEDS ORDERED: Calcium Gluconate 1gm/50mL 1 GM/50 ML BAG IVPB SCH ×2 (08:00)
[2020-10-25] MEDS ORDERED: cefTRIAXone 1,000 MG in Water for inj. (sterile) 10 ML IVP SCH (09:00)
[2020-10-25] MEDS ORDERED: Azithromycin 500 MG in 0.9 % Sodium Chloride 250 ML IVPB SCH (10:00)
== END 2020-10-25 10:21 | disposition home or self-care (01) | DRG 193 ==
LOC: CDU 05:14 → EMEROOARM 05:14 → SUATTDRO 11:02 → CDU 11:30
PROVIDERS: ADMIT Internal Medicine; ATTEND Internal Medicine

== ENCOUNTER 2021-04-15 09:58 | Observation (INO) ==
[2021-04-15] MEDS ORDERED: Isovue-370 500 ML BOTTLE IVP ONE (10:28)
[2021-04-15 11:26] LABS: Basophils % 0.4 %; Eosinophils # 0.2 K/mcL (0.0-0.6); Eosinophils % 3.5 %; Hematocrit 44.1 % (35.3-44.9); Hemoglobin 14.1 g/dL (11.5-15.4); Immature Granulocytes % 0.4 % (0-4); Lymphocytes # 0.7 K/mcL (0.6-4.6); Mean Corpuscular Hemoglobin 27.8 pg (28.0-33.3); Mean Corpuscular Volume 86.8 fL (83.0-100.0); Mean Platelet Volume 9.2 fL (9.4-12.4); Monocytes # 0.3 K/mcL (0.0-1.3); Monocytes % 6.5 %; Neutrophils # 3.9 K/mcL (1.6-8.9); Platelet Count 124 K/mcL (140-400); Red Blood Count 5.08 M/mcL (3.82-4.97); Red Cell Distribution Width 14.1 % (11.5-14.5); Segmented Neutrophils % 75.2 %; White Blood Count 5.2 K/mcL (4.3-11.1)
[2021-04-15 11:33] LABS: Bacteria,Urine Few per hpf (None-Few); Bilirubin,Urine Negative (Negative); Blood,Urine Negative (Negative); Clarity,Urine Clear (Clear); Color,Urine Light-Yellow (Yellow); Glucose,Urine (UA) Normal (Normal); Ketones,Urine Negative (Negative); Leukocyte Esterase,Urine Moderate (Negative); Mucus,Urine Few per lpf (None-Few); Nitrite,Urine Negative (Negative); PH,Urine 6.5 pH Units (5.0-8.0); Protein,Urine Trace mg/dL (Neg-Trace); RBC,Urine 0-3 per hpf (0-3); Specific Gravity,Urine 1.018 (1.010-1.025); Squamous Epithelial Cell,Urine Few per hpf (None-Few); Urobilinogen,Urine Normal (Normal); WBC,Urine 15-30 per hpf (0-3)
[2021-04-15 11:46] LABS: Alanine Aminotransferase 10 Units/L (7-52); Albumin 3.9 g/dL (3.5-5.7); Albumin/Globulin Ratio 1.2 (1.1-2.2); Alkaline Phosphatase 63 Units/L (34-104); Aspartate Amino Transferase 11 Units/L (13-39); BUN/Creatinine Ratio 31 (6-26); Bilirubin,Total 0.8 mg/dL (0.3-1.0); Blood Urea Nitrogen 17 mg/dL (8-23); Calcium 9.1 mg/dL (8.6-10.3); Carbon Dioxide 28 mEq/L (23-29); Chloride 106 mEq/L (98-107); Globulin 3.2 g/dL (2.4-3.5); Glucose 132 mg/dL (70-105); Osmolality,Calculated 295 (280-300); Potassium 3.6 mEq/L (3.5-5.1); Sodium 141 mEq/L (136-145); Total Protein 7.1 g/dL (6.4-8.9); Troponin I < 0.03 ng/mL (< 0.04); eGFR For African Americans > 60 (> 60); eGFR For Non-African Americans > 60 (> 60)
[2021-04-15 12:38] LABS: Adenovirus Not Detected (Not Detect); Bordetella Pertussis Not Detected (Not Detect); Chlamydophila pneumoniae Not Detected (Not Detect); Coronavirus 229E Not Detected (Not Detect); Coronavirus HKU1 Not Detected (Not Detect); Coronavirus NL63 Not Detected (Not Detect); Coronavirus OC43 Not Detected (Not Detect); Human Metapneumovirus Not Detected (Not Detect); Human Rhinovirus/Enterovirus Not Detected (Not Detect); Influenza A Subtype 2009 H1 Not Detected (Not Detect); Influenza B Not Detected (Not Detect); Mycoplasma pneumoniae Not Detected (Not Detect); Parainfluenza Virus 1 Not Detected (Not Detect); Parainfluenza Virus 2 Not Detected (Not Detect); Parainfluenza Virus 3 Not Detected (Not Detect); Parainfluenza Virus 4 Not Detected (Not Detect); Respiratory Syncytial Virus Not Detected (Not Detect); SARS-CoV-2 Not Detected (Not Detect)
[2021-04-15] MEDS ORDERED: cefTRIAXone 1,000 MG in Water for inj. (sterile) 10 ML IVP ONE (13:23)
[2021-04-15] MEDS ORDERED: Ondansetron 4 MG/2 ML VIAL IVP PRN (14:35)
[2021-04-15] MEDS ORDERED: Naloxone 0.4 MG/ML INJ IVP PRN (14:35)
[2021-04-15] MEDS ORDERED: Acetaminophen 325 MG TABLET PO PRN (14:35)
[2021-04-15] MEDS ORDERED: D5% in Water 1,000 ML IVC PRN (14:38)
[2021-04-15] MEDS ORDERED: *HR* Dextrose 50 % in Water (Syg) 50 ML SYRINGE IVP PRN (14:38)
[2021-04-15] MEDS ORDERED: Dextrose Gel 15 GM/37.5 ML TUBE PO PRN ×2 (14:38)
[2021-04-15] MEDS: Insulin LISPRO 300 UNITS/3 ML VIAL SUBQ SCH ×2 (17:38→20:17)
[2021-04-15] MEDS ORDERED: Perflutren Lipid Microsphere 1.3 ML in 0.9 % Sodium Chloride 8.7 ML IVP PRN (17:54)
[2021-04-15] MEDS ORDERED: Ipratropium/Albuterol Neb 3 ML IH PRN (17:55)
[2021-04-16] MEDS: Insulin LISPRO 300 UNITS/3 ML VIAL SUBQ SCH ×4 (08:25→20:53)
[2021-04-16] MEDS: *HR* Enoxaparin 40 MG/0.4 ML SYRINGE SQ SCH (08:35)
[2021-04-16] MEDS: carvediloL 6.25 MG TABLET PO SCH ×2 (08:35→17:28)
[2021-04-16] MEDS: lisinopriL 20 MG TABLET PO SCH (08:35)
[2021-04-16] MEDS ORDERED: cefTRIAXone 1,000 MG in 0.9 % Sodium Chloride Mini Bag 100 ML IVPB SCH (09:00)
[2021-04-16 10:06] LABS: Basophils % 0.7 %; Eosinophils # 0.2 K/mcL (0.0-0.6); Eosinophils % 4.2 %; Hematocrit 41.3 % (35.3-44.9); Hemoglobin 13.4 g/dL (11.5-15.4); Immature Granulocytes % 0.2 % (0-4); Immature Platelets 3.9 % (1.1-6.1); Lymphocytes # 0.8 K/mcL (0.6-4.6); Lymphocytes % 16.5 %; Mean Corpuscular HGB Conc 32.4 g/dL (31.6-35.5); Mean Corpuscular Hemoglobin 27.8 pg (28.0-33.3); Mean Corpuscular Volume 85.7 fL (83.0-100.0); Mean Platelet Volume 9.7 fL (9.4-12.4); Monocytes # 0.3 K/mcL (0.0-1.3); Neutrophils # 3.3 K/mcL (1.6-8.9); Platelet Count 117 K/mcL (140-400); Red Blood Count 4.82 M/mcL (3.82-4.97); Segmented Neutrophils % 71.4 %; White Blood Count 4.6 K/mcL (4.3-11.1)
[2021-04-16 10:19] LABS: BUN/Creatinine Ratio 30 (6-26); Blood Urea Nitrogen 14 mg/dL (8-23); Calcium 8.9 mg/dL (8.6-10.3); Carbon Dioxide 26 mEq/L (23-29); Chloride 105 mEq/L (98-107); Glucose 152 mg/dL (70-105); Magnesium 1.9 mg/dL (1.6-2.6); Osmolality,Calculated 289 (280-300); Potassium 3.5 mEq/L (3.5-5.1); Sodium 138 mEq/L (136-145); eGFR For African Americans > 60 (> 60); eGFR For Non-African Americans > 60 (> 60)
[2021-04-16 15:22] LABS: Estimated Average Glucose 128 mg/dl; Hemoglobin A1C 6.1 %
[2021-04-17 04:18] LABS: Immature Granulocytes % 0.2 % (0-4)
[2021-04-17 04:20] LABS: Basophils % 0.6 %; Eosinophils # 0.3 K/mcL (0.0-0.6); Eosinophils % 5.7 %; Hemoglobin 13.2 g/dL (11.5-15.4); Immature Platelets 4.6 % (1.1-6.1); Lymphocytes # 1.1 K/mcL (0.6-4.6); Lymphocytes % 22.8 %; Mean Corpuscular HGB Conc 32.2 g/dL (31.6-35.5); Mean Corpuscular Volume 86.9 fL (83.0-100.0); Mean Platelet Volume 9.7 fL (9.4-12.4); Monocytes # 0.5 K/mcL (0.0-1.3); Monocytes % 9.5 %; Platelet Count 113 K/mcL (140-400); Red Blood Count 4.72 M/mcL (3.82-4.97); Red Cell Distribution Width 14.2 % (11.5-14.5); Segmented Neutrophils % 61.2 %
[2021-04-17 04:26] LABS: Neutrophils # 3.1 K/mcL (1.6-8.9)
[2021-04-17 04:38] LABS: BUN/Creatinine Ratio 33 (6-26); Blood Urea Nitrogen 17 mg/dL (8-23); Calcium 8.9 mg/dL (8.6-10.3); Carbon Dioxide 26 mEq/L (23-29); Chloride 106 mEq/L (98-107); Glucose 124 mg/dL (70-105); Magnesium 1.9 mg/dL (1.6-2.6); Osmolality,Calculated 293 (280-300); Potassium 3.7 mEq/L (3.5-5.1); Sodium 140 mEq/L (136-145); eGFR For African Americans > 60 (> 60); eGFR For Non-African Americans > 60 (> 60)
[2021-04-17] MEDS: lisinopriL 20 MG TABLET PO SCH (09:28)
[2021-04-17] MEDS: *HR* Enoxaparin 40 MG/0.4 ML SYRINGE SQ SCH (09:29)
[2021-04-17] MEDS: carvediloL 6.25 MG TABLET PO SCH (09:29)
[2021-04-17] MEDS: Insulin LISPRO 300 UNITS/3 ML VIAL SUBQ SCH ×2 (09:30→12:32)
[2021-04-17 12:20] VITALS: BP 150/81; PULSE 83; TEMP 97.8; O2SAT 90
== END 2021-04-17 15:27 | disposition home or self-care (01) ==
LOC: 3BNU 09:58 → EMEROOARM 09:58 → SUATTDRO 16:19 → 3BNU 16:46
PROVIDERS: ADMIT Pharmacist; ATTEND Internal Medicine